=== PATIENT | male | born 1945 | race Caucasian/White ===

== ENCOUNTER 2019-06-27 14:31 | Inpatient (IN) ==
[2019-06-27] MEDS ORDERED: ULTRAM PO PRN (15:33)
[2019-06-27 16:15] LABS: HEMATOCRIT 45.4 % (42.0-52.0); MCH 30.6 PG (27-31); MCV 92.7 FL (81-99); MPV 9.5 FL (7.4-10.4); RBC 4.9 XMIL (4.7-6.1); RDW 12.1 % (11.5-14.5); WBC 6.3 X1000 (4.8-10.8)
[2019-06-27 16:31] LABS: HEMOGLOBIN A1C 4.7 % (4.8-6.0)
--- NOTE | 2019-06-27 16:43 | Diag Imaging Result Doc PS360 ---
EXAM: CHEST-1 VIEW INDICATION: BRONCHITIS TECHNIQUE: One view COMPARISON: 06/13/2019 FINDINGS: The lungs are grossly clear. There is no discrete pleural fluid collection or pneumothorax. The cardiomediastinal silhouette and central vasculature are grossly unremarkable. IMPRESSION: No evidence of acute pathology by plain radiograph. Electronically signed by Burke Morales 06/27/2019 4:41 PM
[2019-06-27 16:45] LABS: ALB/GLOB RATIO 1.6; ALBUMIN 3.9 g/dL (3.5-5.0); CALCIUM 8.9 mg/dL (8.8-10.2); CREATININE 1.8 mg/dL (0.7-1.2); POTASSIUM 4.1 mmol/L (3.5-5.1); TOTAL BILIRUBIN 0.9 mg/dL (0.20-1.00); TOTAL PROTEIN 6.3 g/dL (6.3-8.3)
[2019-06-27 16:48] LABS: ALLEN TEST NO; BLOOD TYPE ARTERIAL; HCO3-(ACT) 26.4 mmoll (20.0-26.0); METHB 1.3 % (0.0-1.5); O2(CT) 20.7 mL/dL (15.0-23.0); O2HB 95.1 % (95.0-99.0); PCO2(98.6) 40 mmHg (35-45); PO2(98.6) 82 mmHg (60-100); SAMPLE BLOOD; SAO2 98.7 % (95.0-100.0); THB 15.5 g/dL (11.5-17.4); pH(98.6) 7.43 (7.35-7.45)
[2019-06-27 16:50] LABS: MODALITY ROOM AIR
[2019-06-27] MEDS: 1/2 NS 1,000 ML IV SCH (17:12)
[2019-06-27] MEDS: ROCEPHIN 1 GM in NS 50 ML IV SCH (17:13)
--- NOTE | 2019-06-27 17:18 | EKG Report ---
Test Performed on : 06/27/2019 3:48:09 PM Test Reason : FALLS Blood Pressure : / mmHG Vent. Rate : 047 BPM Atrial Rate : 047 BPM P-R Int : 198 ms QRS Dur : 104 ms QT Int : 472 ms P-R-T Axes : 086 022 193 degrees QTc Int : 417 ms Critical Test Result: Low HR Sinus bradycardia. with premature atrial complexes. Left ventricular hypertrophy with repolarization abnormality Abnormal ECG When compared with ECG of 10-APR-2015 06:50, premature atrial complexes. are now present Nonspecific T wave abnormality now evident in Inferior leads T wave inversion now evident in Lateral leads Confirmed by Bam AGOSTO, Demario Goins ([id number]) on 06/29/2019 10:19:00 AM
--- NOTE | 2019-06-27 18:28 | Diag Imaging Result Doc PS360 ---
EXAM: CT HEAD W/O CONTRAST - 06/27/2019 HISTORY: FALLS/WEIGHT LOSS TECHNIQUE: CT head without contrast COMPARISON: 04/09/2017 FINDINGS: There are atrophic changes and chronic microvascular ischemic changes similar to prior. There is no indication of recent infarct, although acute infarcts may not be immediately visible. There is no evidence of intracranial hemorrhage, mass effect, midline shift, or hydrocephalus. There is no evidence of skull fracture. Visualized portions of paranasal sinuses and mastoid air cells appear essentially clear. IMPRESSION: Atrophic changes and chronic microvascular ischemic changes. No visible acute intracranial abnormality. This exam was performed using automated exposure control, adjustment of mA or kV according to patient size, and/or use of iterative reconstruction technique. Electronically signed by Froilan Herrera 06/27/2019 6:26 PM
[2019-06-27] MEDS: ATIVAN PO SCH (21:51)
[2019-06-27] MEDS: COREG PO SCH (21:51)
[2019-06-28] MEDS: PROTONIX PO SCH (06:22)
[2019-06-28] MEDS ORDERED: NORVASC PO SCH (09:00)
[2019-06-28] MEDS: COREG PO SCH ×2 (09:50→22:26)
--- NOTE | 2019-06-28 11:37 | PROGRESS NOTE ---
DATE: 06/28/2019 Mr. Cramer is feeling better. He has some orthostatic hypotension. He denies any chest pain. He has significant weight loss. Arterial blood gases are satisfactory. CBC is unremarkable. Potassium is 4.1. Blood sugar was 89 this morning. He probably has mild kidney disease. CT scan of the brain reveals some atrophic changes and chronic microvascular changes in the brain. Chest x-ray revealed no evidence of acute pathology. EKG shows definite evidence of left ventricular hypertrophy. His blood pressure is uncontrolled. He has some definite T-wave changes which could be ischemic in nature. We will get a Cardiology consult for him. -9 cc: Perry Pillai MD
--- NOTE | 2019-06-28 14:50 | HISTORY AND PHYSICAL ---
HISTORY OF PRESENT ILLNESS: Mr. Cramer, who is a 73-year-old, white gentleman, is admitted for multiple reasons. His lower respiratory infection is not improving from outpatient therapy. He has persistent cough, shortness of breath. He is coughing up greenish-yellow sputum. He has been diagnosed to have acute bronchitis. lately he has been having frequent falls. He has uncontrolled hypertension and a history of significant weight loss which he has lost about 7 to 10 pounds in the last 1 month. He has been slowly, chronically losing weight. MEDICATIONS: His medications include carvedilol, losartan which we have stopped, amlodipine has been started, and he takes tramadol, as well as antibiotics and Ativan at bedtime. SOCIAL HISTORY: He does not smoke. However, he has been drinking off and on. For the last 1 month, he has not had any drinks. No alcohol. ALLERGIES: He is not allergic to any medication. REVIEW OF SYSTEMS: He falls frequently and has multiple bruises on examination. He has some bruising in his right flank. He has a persistent cough with expectoration, shortness of breath, and has been losing weight. PAST SURGICAL HISTORY: Reveals history of appendectomy, gallbladder surgery, as well as a history of partial colectomy. He says he exactly does not remember why but he did not have a cancer, probably for recurrent diverticulitis probably. PHYSICAL EXAMINATION: VITAL SIGNS: His vital signs reveal temperature normal, pulse 58 per minute, respiratory rate 19 per minute, blood pressure 191/76. HEENT: Head: Normocephalic. Pupils: PERRLA. Fundus examination normal. Neck: Supple. JVP normal. ENT examination unremarkable. There is no evidence of lymphadenopathy, thyroid enlargement, pedal edema, calf tenderness, anemia, cyanosis, or clubbing. Pedal pulses well felt. He had some bruising on the skin around the flank area. BREAST EXAMINATION: Normal. CHEST: Normal inspection. LUNGS: Reveal bilateral mild expiratory wheezing. CARDIOVASCULAR: PMI in the normal position. Heart sounds normal. No murmur, gallop, or rub noted. ABDOMEN: Nondistended. Hernial orifices normal. No guarding, rigidity, free fluid, masses, or organomegaly. Bowel sounds normal. RECTAL: Examination deferred. DOCUMENTUM CONSULTANT: Higher functions normal. Cranial nerves normal. Motor and sensory system examination unremarkable. Deep tendon reflexes normal. Plantars downgoing. Skull and spine examination normal for age. No cerebellar signs or signs of meningeal irritation. LOCOMOTOR EXAMINATION AND SKIN EXAMINATION: Unremarkable except for bruising. He has mild evidence of orthostatic hypotension. IMPRESSION: 1. Acute bronchitis, recurrent symptoms. 2. Uncontrolled hypertension. 3. Frequent falls. 4. History of weight loss. PLAN: Plan to watch his blood pressure closely. Keep him on telemetry and get a CT scan of the head. cc: Perry Pillai MD MTDD
--- NOTE | 2019-06-28 14:50 | Diag Imaging Result Doc PS360 ---
EXAM: MRI BRAIN W/O CONTRAST HISTORY: dementia/atherosclerosis TECHNIQUE: MRI brain without contrast. Axial, sagittal, and coronal images obtained in multiple sequences. COMPARISON: Recent head CT FINDINGS: No recent infarct. There is atrophy with prominent microvascular ischemic changes. Old lacunar infarcts bilaterally. No mass or midline shift. Normal orbits. No epidural or subdural fluid collection. No sinus opacification or air-fluid levels. IMPRESSION: Atrophy with chronic microvascular ischemic changes and old lacunar infarcts, but no acute infarct. Electronically signed by Glenn Lizama 06/28/2019 2:48 PM
[2019-06-28] MEDS: ROCEPHIN 1 GM in NS 50 ML IV SCH (17:42)
--- NOTE | 2019-06-28 21:16 | CARDIOLOGY CONSULTATION ---
DATE: 06/28/2019 REQUESTING PHYSICIAN: Dr. Pillai. REASON FOR CONSULTATION: Patient experiencing frequent falls, suspected orthostatic hypotension. HISTORY: Mr. Cramer is a 73-year-old, male, who normally follows with Dr. Pillai. He says that for the past few weeks, he has felt weaker than usual. He stumbles when he walks and he walks with a shuffle. He had experienced multiple falls at home. His appetite is poor. Yesterday, they went to see Dr. Pillai and he recommended admission to the hospital because of suspected orthostatic hypotension. The patient denies having chest pains or dyspnea. He has really slowed down quite a bit as far as physical activities in the past few years. PAST MEDICAL HISTORY: Positive for coronary heart disease. Back in 2013, I believe, he underwent stenting to the right coronary artery. He has history of emphysema, history of hypertension and hyperlipidemia. PAST SURGICAL HISTORY: Positive for back surgery. He has had a melanoma resected. He has had colon surgery, shoulder, and appendix removed. He has had cholecystectomy. SOCIAL HISTORY: He is to his for 35 years. 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 He quit smoking 30 years ago. He does not drink any alcohol. He has 1 biological child and 2 stepchildren. HOME MEDICATIONS: At this time include: Aspirin, fluticasone, hydrocodone, lorazepam, losartan, hydrochlorothiazide, and pravastatin. ALLERGIES: He is not allergic to any medicine. FAMILY HISTORY: Really noncontributory for the purposes of this admission. REVIEW OF SYSTEMS: As I said, according to the , physically he has not been as active as he used to be, really slowed down quite a bit. His memory is not good. PHYSICAL EXAMINATION: Vital signs: Blood pressure is 176/57, temperature 97.6 degrees, pulse 61, respirations 16. He is awake, alert, follows some commands. HEENT: Unremarkable. Chest: Sounds diminished bilaterally. Heart: Sounds are regular and rhythmic. No gallop or murmurs noted. Abdomen: Nontender, soft. No masses. No hepatomegaly. Extremities: No obvious edema. Neurologic: Nonfocal. Moves 4 extremities. LABORATORY AND DIAGNOSTIC DATA: Sodium is 139, potassium 4.1, BUN is 22, creatinine 1.8. Hemoglobin A1c is low at 4.7%. Hemoglobin 15 gram percent. Blood gases in room air, PO2 of 82, pCO2 is 40, pH of 7.43. Chest x-ray was done yesterday, that shows no acute pathology. EKG shows sinus rhythm with sinus bradycardia and left ventricular hypertrophy with diffuse repolarization abnormalities. IMPRESSION: 1. Patient who presents with frequent falls. There is a concern for orthostatic hypotension. 2. History of coronary heart disease in 2013. 3. Abnormal electrocardiogram, probably related to left ventricular hypertrophy, question of ischemia. 4. History of hyperlipidemia. 5. Question of dementia. RECOMMENDATIONS: At this time, we will do an echocardiogram. We will check some markers including troponins and proBNP. We will decide what additional interventions based on the results of the echocardiogram and the multiple blood pressure determinations that are anticipated to be done in the next 24 to 48 hours. Consider brain MRI and Neurology consultation. We may consider obtaining also a Myocardial perfusion stress test on him. cc: MD Perry Goode MD MTDD
[2019-06-28] MEDS: ATIVAN PO SCH (22:24)
[2019-06-28] MEDS: NORVASC PO SCH (22:25)
--- NOTE | 2019-06-28 22:52 | ECHO REPORT ---
ORDER DATE: 06/28/2019 MEASUREMENTS: 1. Septal thickness 1.5. 2. Left ventricular internal diameter in diastole 5.1. 3. Posterior wall thickness 1.4. 4. Left ventricular internal diameter in systole 3.9. 5. Left atrium 4.1. 6. Aortic root 3.9. SUMMARY: 1. Adequate quality study. 2. Aortic valve is trileaflet and demonstrates a very mild sclerotic change with normal aortic valve opening evident. Peak gradient across aortic valve is less than 10 mmHg. There is mild aortic regurgitation. Mild mitral annular calcification is demonstrated. Tricuspid and pulmonic valves are without evidence of structural abnormality with trace tricuspid regurgitation and mild pulmonic insufficiency. The aortic root is normal size. 3. Normal left ventricular chamber size with mild to moderate concentric left hypertrophy is demonstrated. Estimated left ejection fractions is approximately 45% in the setting of mild global hypokinesis. Left atrium is very mildly enlarged. Right atrium and right ventricle are normal size with grossly preserved right ventricular systolic function. 4. No pericardial effusion. 5. Appearance of inferior vena cava suggests normal central venous pressure. CONCLUSIONS: 1. Very mild aortic valve sclerosis without stenosis with mild aortic regurgitation. 2. Mild mitral annular calcification. 3. Mild to moderate concentric left hypertrophy with estimated left ejection fraction approximately 45%. 4. Very mild left atrial enlargement. cc: MD Perry Soriano MD
[2019-06-29] MEDS: PROTONIX PO SCH ×2 (05:22→05:59)
--- NOTE | 2019-06-29 07:44 | EKG Report ---
Test Performed on : 06/29/2019 06:53:08 AM Test Reason : CAD/syncope Blood Pressure : / mmHG Vent. Rate : 060 BPM Atrial Rate : 068 BPM P-R Int : 000 ms QRS Dur : 108 ms QT Int : 424 ms P-R-T Axes : 000 009 195 degrees QTc Int : 424 ms Atrial fibrillation. Moderate voltage criteria for LVH, may be normal variant ST & T wave abnormality, consider inferolateral ischemia Abnormal ECG When compared with ECG of 27-JUN-2019 15:48, (Unconfirmed) Atrial fibrillation. has replaced Sinus rhythm. Confirmed by Bam AGOSTO, Demario Goins ([id number]) on 06/29/2019 10:20:53 AM
--- NOTE | 2019-06-29 08:19 | CONSULTATION ---
DATE OF CONSULTATION: 06/28/2019 REASON FOR CONSULTATION: Falls. HISTORY OF PRESENT ILLNESS: This is a 73-year-old male who was admitted yesterday with multiple complaints. He has had persistent respiratory infection. He has been having frequent falls and uncontrolled hypertension as well as weight loss. History from the patient is that his falls increased around the summer of last year. He feels off balance with and has tendency to fall with positional change. He reports both of vertigo as well as feelings or feelings of faint with events. He denies loss of consciousness. He denies fall with head injury. He denies known seizure. He reports chronic back pain without new or worsening pain. No bowel or bladder changes. He feels the floor beneath his feet and he denies sensory loss in the lower extremities. He reports this a history of stroke 3 to 4 years ago and says that his right side is not as strong as it used to be since that time. He thinks he has had some difficulty with memory but does not elaborate. He does not manage his own finances for many years. When I asked him why he came to the hospital, he says his made him. He has been dealing with a persistent respiratory infection. PAST MEDICAL HISTORY: He reports heart disease with [place], hypertension, hyperlipidemia. PAST SURGICAL HISTORY: He reports back surgery, surgery to the colon, cholecystectomy, shoulder surgery. FAMILY HISTORY: Reviewed and noncontributory. SOCIAL HISTORY: He is . No tobacco or illicits. He reports he used to drink more, 1-1/2 cases of beer a week. In the last 3 years, he has been drinking 1 to 2 beers every other day. ALLERGIES: No known drug allergies. HOME MEDICATIONS: Reviewed in the chart include, aspirin, lorazepam, antihypertensive, pravastatin. REVIEW OF SYSTEMS: Balance of 12 reviewed is otherwise negative except that detailed in the HPI. PHYSICAL EXAMINATION: Vital Signs: Afebrile, blood pressure current 176/57, pulse 50s, respirations 16, 98% on room air. General: Mr. Cramer is sitting on the side of the bed eating dinner. He is awake and alert, and oriented. He is a interactive and spontaneous. Neurologic: There is a slight slowness to his responses. No language disturbance. Cranial nerves are intact as tested. I did not appreciate nystagmus There may be mildly reduced facial expression noticeably when he sits up on the side of the bed. During discussion examination, he tends to gradually list backwards and toward his right side. I do not see resting tremor or other tremor. He has a difficult time relaxing when attempting to evaluate his tone. He has good power in the limbs which is symmetric without obvious focal finding. No pronator drift. Finger to nose. And rapid alternating movements are intact. [id number] testing was more difficult using the left leg when compared to his right leg. He has intact pinprick testing with the exception of the dorsal left hand. There is no sensory level. There is no saddle anesthesia. He has intact vibration and joint position sense distally at the great toes bilaterally. Reflexes are 2+, slightly brisk bilaterally at the knees and 2+ at the ankles. No clonus. Plantar response is downgoing. The wrists reflexes are 2+ bilaterally. to 2+ bilaterally. The patient stands and walks with assistance. He is slow and cautious, slightly stooped. His gait is narrow based. Initially he starts out off with a mildly reduced stride. That stride is persistent through the duration of his gait however he begins, with time, he begins to drag his feet across the floor with each step as opposed to lifting the foot off the floor while moving forward. Once reminded, he corrects this but again shortly thereafter, begins dragging his feet. His arm swing is reduced. He did reasonably well on his turn however. I did not see any tremor or tremulousness during the walk. He reported feeling unsteady but did not endorse lightheadedness during my time with him. He does tend to list at times and again, a bit toward the right, but that is not prominent during his gait. I believe the Romberg sign is absent. DIAGNOSTIC DATA: A MRI of the brain was performed, noncontrast, this was personally reviewed. He has at least moderate generalized cerebral atrophy as well as at least moderate chronic microvascular ischemic findings. Head CT did not show acute findings. LABORATORY DATA: Reviewed in the chart. Creatinine of 1.8. ASSESSMENT AND PLAN: Gait disturbance with recurrent falls in a 73-year-old with gait disturbance with recurrent falls. This is likely to be multifactorial. Potential etiologies or contributing etiologies may be vestibular, related to cognitive impairment, ongoing medical illness, orthostasis. I do not see gross evidence of peripheral neuropathy. Agree with workup as you are doing, agree with orthostatic vital signs. He would benefit from physical therapy. Thank you for this consultation. cc: MD Perry García MD MTDD
--- NOTE | 2019-06-29 09:01 | EKG Report ---
Test Performed on : 06/29/2019 08:32:59 AM Test Reason : HIGH TROPNIN Blood Pressure : / mmHG Vent. Rate : 056 BPM Atrial Rate : 041 BPM P-R Int : 000 ms QRS Dur : 104 ms QT Int : 420 ms P-R-T Axes : 000 026 178 degrees QTc Int : 405 ms Atrial fibrillation. with slow ventricular response. Voltage criteria for left ventricular hypertrophy ST & T wave abnormality, consider inferolateral ischemia Abnormal ECG When compared with ECG of 29-JUN-2019 06:53, (Unconfirmed) No significant change was found Confirmed by Bam AGOSTO, Demario Goins ([id number]) on 07/01/2019 7:00:32 PM
--- NOTE | 2019-06-29 10:12 | PROGRESS NOTE ---
DATE: 06/29/2019 SUMMARY: Ms Cramer had an echo yesterday which again revealed the presence of left ventricular hypertrophy, mild aortic sclerosis, mild mitral annular calcification, ejection fraction was 45%. This morning, he had a troponin result which came back positive. His proBNP is elevated also. We repeated the EKG again this morning. Overall condition otherwise is stable. He denies having any chest pains. cc: Perry Pillai MD
[2019-06-29] MEDS: NORVASC PO SCH ×2 (10:33→20:29)
[2019-06-29] MEDS: COREG PO SCH ×2 (10:33→20:29)
--- NOTE | 2019-06-29 12:54 | PROGRESS NOTE ---
DATE: 06/29/2019 SUBJECTIVE: Dr. Rizvi saw Mr. Cramer for initial neurology evaluation this admission. He has chronic unsteady gait with a history of falls. Workup includes brain MRI showing atrophy and usual changes with nothing acute. He takes lorazepam regularly, and we do not have urine drug screen this admission. Chemistry was unremarkable. OBJECTIVE: On my exam, he is awake, alert, attentive. He answered questions appropriately. Speech is a little bit slow, but not dysarthric. Voice is strong. He did well on brief bedside testing of cognitive function. There is slightly diminished facial motility, but I do not think this is really remarkable. He has good upgaze and full lateral eye movements. Tongue is midline. Strength is normal in the arms and legs. He did well on [id number] testing bilaterally. He reports good sensation over the limbs. Proprioception is good at the great toe MTP joint bilaterally. He was able to position himself at the bedside, stand and take steps without support or assistance. His gait is a little bit slow, slightly stooped with a little bit of shuffling. He turned en bloc. There is no cogwheeling or rigidity. There is no resting tremor or other abnormal movement. IMPRESSION: Gait difficulty, history of falls. He is a little bit parkinsonian, but does not appear to have features typical of idiopathic Parkinson disease. He did well on limited bedside cognitive testing, but could still have a mild cognitive impairment syndrome and with associated gait apraxia. RECOMMENDATIONS: We might carefully consider trial with dopaminergic medicine electively. If lorazepam is not essential, that could be reduced and stopped. At this point, I would go ahead with physical therapy and monitor his medications. No other suggestion from Neurology standpoint. I will be glad to see him as an outpatient, if needed. Thanks for asking Neurology to see Mr. Cramer. cc: MD Perry Carl III, MD MTDD
[2019-06-29] MEDS: ROCEPHIN 1 GM in NS 50 ML IV SCH (16:35)
[2019-06-29] MEDS: 1/2 NS 1,000 ML IV SCH (16:39)
[2019-06-29] MEDS: ATIVAN PO SCH (20:29)
[2019-06-30] MEDS: PROTONIX PO SCH (06:07)
[2019-06-30] MEDS: NORVASC PO SCH ×2 (09:07→20:09)
[2019-06-30] MEDS: COREG PO SCH ×2 (09:07→20:10)
--- NOTE | 2019-06-30 10:16 | PROGRESS NOTE ---
DATE: 06/30/2019 Mr. Raghavendra Cramer is doing fairly well except that he has some definite T-wave changes in his repeat cardiogram. Enzymes are positive. We will continue with the current management. He was seen by Dr. Barksdale. We are starting the physical therapy, and we will try to cut down on the Ativan if we can. We may have to cut it down to 0.5 mg at bedtime now. -8 cc: Perry Pillai MD
--- NOTE | 2019-06-30 13:57 | PROGRESS NOTE ---
DATE: 06/30/2019 SUBJECTIVE: Mr. Cramer reports no falls or clumsiness. He reports he feels better. I agree with Dr. Pillai's plan to slowly reduce lorazepam as tolerated. OBJECTIVE: He is awake and alert. He seemed a bit brighter and more animated today. His voice is strong and he is not dysarthric. There is no tremor. PLAN: I would like to see Mr. Cramer as an outpatient to better evaluate his gait and cognitive status. I do not have any new thoughts or new suggestions from neurology standpoint today. Thanks for asking us to see Mr. Cramer. cc: MD Perry Carl III, MD MTDD
[2019-06-30] MEDS: ROCEPHIN 1 GM in NS 50 ML IV SCH (15:42)
[2019-06-30] MEDS: ATIVAN PO SCH (20:09)
[2019-07-01] MEDS: PROTONIX PO SCH ×2 (05:59→06:00)
[2019-07-01] MEDS ORDERED: LEXISCAN ONE (08:07)
[2019-07-01] MEDS: COREG PO SCH ×2 (10:11→22:36)
[2019-07-01] MEDS: NORVASC PO SCH ×2 (10:11→22:35)
--- NOTE | 2019-07-01 13:52 | Diag Imaging Result Document ---
PROCEDURE NAME: MYOCARDIAL PERF SCAN, STR/REST - 07/01/2019 INDICATION: Chest pain. PROCEDURES PERFORMED: 1. Lexiscan stress. 2. One-day stress rest myocardial perfusion imaging (rest dose 11.9 millicuries, stress dose 33.6 millicuries). FINDINGS: LEXISCAN STRESS RESULTS: 1. Baseline EKG demonstrates sinus rhythm, multiple PVCs, nonspecific ST-T changes, suggestion of LVH. 2. Lexiscan stress does not demonstrate any clear evidence of ischemic related EKG changes or significant arrhythmias. 3. Continued PVCs occurred during the course of the study. PERFUSION IMAGING RESULTS: 1. No evidence of abnormal extracardiac uptake. 2. TID ratio 0.85. 3. Perfusion imaging demonstrates a small to moderate-sized mild intensity, fixed defect in a narrow aspect from the inferior apical, mid inferior to basal inferior segments. This could represent soft tissue attenuation artifact. Wall motion appears to be intact in these areas. 4. There is mild reduction in LV systolic function with a rest EF of 41%. Stress EF of 45%. The end-diastolic volume on stress is 201, end systolic volume of 111, suggesting a dilated left ventricle. The wall motion is globally mildly hypokinetic. cc: MD Hima Lawler MD
--- NOTE | 2019-07-01 14:06 | CARDIOLOGY PROGRESS NOTE ---
DATE: 07/01/2019 CHIEF COMPLAINT: Patient with frequent falls, apraxic. SUBJECTIVE: Mr. Cramer has been evaluated fully by Neurology. They believe that he may have some neurological issues. He is going to be seen on followup by them. OBJECTIVE: Vital signs: Blood pressure is 175/70, temperature 97.9, pulse 67, respirations 18. General: He is awake, alert, oriented, no distress. HEENT: Unremarkable. Chest: Sounds clear to auscultation and percussion. Heart: Sounds regular and rhythmic. No gallop or murmur is noted. Abdomen: Nontender. Extremities: Showed no edema. Neurologic exam: Follows commands, moves all 4 extremities. BLOOD WORK: Showed total cholesterol 138, LDL 96, HDL 29. His ProBNP was 3352. His troponin high-sensitivity initially was 17, went up to 19 ng/L, which is very minimally elevated. His creatinine is 1.8. His stress done today shows a fixed inferior wall defect. That is very consistent with his prior diagnosis of severe coronary heart disease, previous intervention to the right coronary artery. 1. A patient who presented with frequent falls,likely related to Neurological disease, question of orthostatic hypotension. 2. History of coronary heart disease, previous stent to right coronary artery. 3. Abnormal electrocardiogram with left ventricular hypertrophy. 4. History of hyperlipidemia. 5. Dementia. RECOMMENDATIONS: At this time, I would suggest to probably let him do some rehabilitation to improve his balance and strength. Cardiac-regan, I do not think we need to do any further testing. As far as medications, we could probably add some sort of low-dose diuretic to optimize his blood pressure with a vasodilator like amlodipine. We will be glad to arrange for a followup. He normally followed with Dr. Dhaliwal in the past. cc: MD Perry Goode MD [facility]
--- NOTE | 2019-07-01 14:14 | PROGRESS NOTE ---
DATE: 07/01/2019 SUBJECTIVE: Mr. Cramer is doing fairly well. He had a stress test done today. His lungs are clear. Heart sounds are normal. He is getting physical therapy. He has a history of frequent falls. The family indicates that they want him to have the physical therapy at rehab. We will try to put in an order for that. cc: Perry Pillai MD
--- NOTE | 2019-07-01 14:38 | PROGRESS NOTE ---
DATE: 07/01/2019 SUBJECTIVE: Mr. Cramer has not had any more falls. He reports he has not noticed any significant deterioration in gait on limited walking around the bedside. There is history of ethanol use chronically but ethanol intake does not appear to correlate temporally with his stumbling and falling. I do not have any new thoughts or new suggestions today. I agree with plans for rehab. I will plan to see Mr. Cramer as an outpatient to follow up on his gait and cognitive problems. cc: MD Perry Carl III, MD MTDD
[2019-07-01] MEDS: ROCEPHIN 1 GM in NS 50 ML IV SCH (15:35)
[2019-07-01] MEDS: ATIVAN PO SCH (22:35)
[2019-07-02] MEDS: PROTONIX PO SCH (06:23)
[2019-07-02] MEDS: COREG PO SCH ×2 (11:04→21:39)
[2019-07-02] MEDS: NORVASC PO SCH ×2 (11:04→21:40)
--- NOTE | 2019-07-02 14:12 | PROGRESS NOTE ---
DATE: 07/02/2019 SUBJECTIVE: Mr. Cramer is a 73-year-old, white gentleman. Admitted with persistent cough, shortness of breath. The patient had greenish-yellow sputum production. The patient also had frequent falls at home. Uncontrolled hypertension, significant weight loss. Admission history physical noted. Initial consideration uncontrolled hypertension, acute bronchitis, weight loss and frequent falls. The patient is undergoing cardiac workup and neurology workup. The patient is feeling some better. He denied any typical chest pain. No seizure-type episode. Denied any high-grade fever or chills. Oral intake is fair. No diarrhea, blood, or mucus in the stool. PAST MEDICAL HISTORY: Significant for back surgery, colon surgery, appendectomy, shoulder surgery. The patient had coronary artery disease, COPD, hypertension and hyperlipidemia. OBJECTIVE: Vital Signs: Blood pressure 157/81, pulse 65, respiration 18, temperature 98 degrees. Neck: Is supple. No JVD. Lungs: Bibasilar crepitations. Heart: S1 and S2 heard. Abdomen: Soft, globular. Bowel sounds present. Patient does have incisional hernia. Extremities: No cyanosis, clubbing. No acute DVT. 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 LABORATORIES: Last hemoglobin 15, hematocrit 45.4. Electrolytes result reviewed. CONSIDERATION: 1. Acute bronchitis. 2. Hypertension. 3. Frequent falls. 4. History of coronary artery disease. 5. Weight loss. Labs and medication noted. The patient had stress test done yesterday, which revealed no evidence of abnormal extracardiac uptake. Wall motion is globally mildly hypokinetic Dilated left ventricle. Ejection fraction of 41%. No mention of reversible ischemia. PLAN: Plan is to continue current treatment. Close observation. Fall precaution. cc: MD Perry Zimmerman MD
[2019-07-02] MEDS: ROCEPHIN 1 GM in NS 50 ML IV SCH (18:38)
[2019-07-02] MEDS: ATIVAN PO SCH (21:39)
[2019-07-03] MEDS: PROTONIX PO SCH (07:04)
[2019-07-03] MEDS: COREG PO SCH ×2 (08:11→22:25)
[2019-07-03] MEDS: NORVASC PO SCH ×2 (08:11→22:25)
[2019-07-03] MEDS: 1/2 NS 1,000 ML IV SCH (08:34)
[2019-07-03] MEDS: ROCEPHIN 1 GM in NS 50 ML IV SCH (15:25)
--- NOTE | 2019-07-03 19:06 | PROGRESS NOTE ---
DATE: 07/03/2019 SUBJECTIVE: Mr. Raghavendra Cramer is doing better. He denied any fever or chills. Oral intake seems to be improving. No recent falls. Denied any nausea or vomiting. No typical chest pain or palpitation. OBJECTIVE: Vital signs: Blood pressure 158/56, pulse 62, respirations 16, temperature 97.7 degrees. skin: Senile turgor. Neck: Supple. No JVD. Lungs: Bibasilar crepitations. Heart: S1 and S2 heard. Abdomen: Soft, nontender. Bowel sounds present. 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 Answering questions fair. Able to move all 4 limbs. CONSIDERATION: 1. Acute bronchitis. Clinically doing better. 2. Hypertension. Continue current treatment. 3. Coronary artery disease. Stress test results reviewed and discussed with the patient again. 4. Incisional hernia on the abdominal wall. Overall patient is doing better. Continue current treatment. PLAN: Plan is to discharge patient to rehab tomorrow if clinical condition permits. cc: MD Perry Zimmerman MD
[2019-07-03] MEDS: ATIVAN PO SCH (22:25)
[2019-07-04] MEDS: PROTONIX PO SCH (06:26)
--- NOTE | 2019-07-04 07:11 | EKG Report ---
Test Performed on : 07/02/2019 11:20:04 AM Test Reason : abnormal rhythm per telemetry Blood Pressure : / mmHG Vent. Rate : 058 BPM Atrial Rate : 058 BPM P-R Int : 190 ms QRS Dur : 106 ms QT Int : 426 ms P-R-T Axes : 099 012 182 degrees QTc Int : 418 ms Sinus bradycardia. with sinus arrhythmia. with occasional atrial-paced complexes Left ventricular hypertrophy with repolarization abnormality Abnormal ECG When compared with ECG of 29-JUN-2019 08:32, Electronic atrial pacemaker has replaced Atrial fibrillation. Confirmed by Bam AGOSTO, Demario Goins ([id number]) on 07/05/2019 6:12:53 PM
[2019-07-04 07:31] VITALS: BP 152/66
--- NOTE | 2019-07-04 09:10 | PROGRESS NOTE ---
DATE: 07/04/2019 SUBJECTIVE: Mr Cramer is feeling better. He has old scar on the anterior wall of the heart. The ejection fraction was around 40 to 45 percent. He does not have any acute cardiac problem at the present time. PLAN: We will discharge him to [facility] today as is he is doing better. His bronchitis part is much better. cc: Perry Pillai MD
[2019-07-04] MEDS: COREG PO SCH (09:34)
[2019-07-04] MEDS: NORVASC PO SCH (09:34)
--- NOTE | 2019-07-04 10:35 | DISCHARGE SUMMARY ---
ADMISSION DATE: 06/27/2019 DISCHARGE DATE: 07/04/2019 HISTORY OF PRESENT ILLNESS: Mr. Cramer is a 73-year-old white gentleman, who is admitted with acute bronchitis, frequent falls, uncontrolled hypertension, history of weight loss. LABORATORY DATA IN THE HOSPITAL: His CT scan of the brain revealed atrophic changes and chronic microvascular changes. An EKG had revealed sinus bradycardia with premature atrial complexes, left ventricular hypertrophy and ST-T wave changes suggested ischemia. The echocardiogram was reported by Dr. Kaushik Doshi. It revealed adequate quality study. Aortic wall was normal. There was moderate annular calcification. Normal left ventricular size. Gtso-lo-cjyymcyf concentric left ventricular hypertrophy. Ejection fraction was 45%. Left atrium was slightly enlarged. He had a Lexiscan performed which was read by Dr. Troy Whittington. It revealed no evidence of abnormal extracardiac uptake. Findings suggested sinus rhythm, multiple PVCs, nonspecific ST changes, suggestion of LVH. There was no clear evidence of ischemic-related EKG changes or significant arrhythmias. I suggested dilated left ventricular wall motion was globally mildly hypokinetic. COURSE IN THE HOSPITAL: He was initially treated with acute bronchitis. Neurology consult was made on account of frequent falls. There was a question about mild Parkinson disease. Dr. Barksdale was concerned. He wants to follow him, especially watch his gait in his office. He had Cardiology consult and cardiac workup was made. General condition improved. Echo and Lexiscan results as mentioned. FINAL DIAGNOSES: 1. Hypertension. 2. Left ventricular hypertrophy. 3. Mild left atrial enlargement. 4. No acute ischemic pattern noted. 5. He is still having problems with his gait and frequent falls. He has been getting physical therapy, and we decided to send him to [facility] for rehabilitation and for skilled physical therapy. DISCHARGE DISPOSITION: We will discharge him today. His medications will be continued. cc: Perry Pillai MD
--- NOTE | 2019-07-09 13:13 | DISCHARGE SUMMARY ---
ADMISSION DATE: 06/27/2019 DISCHARGE DATE: 07/04/2019 Mr. Cramer was admitted with acute bronchitis, and he had acute new onset of congestive heart failure. He has been hypertensive for a long time. cc: Perry Pillai MD
== END 2019-07-04 13:27 | DRG 203 ==
LOC: DIRADM 14:31 → 4N 15:18
PROVIDERS: ADMIT Internal Medicine; ATTEND Internal Medicine